=== PATIENT | female | born 1965 | race American Indian/Alaskan Native ===

== ENCOUNTER 2019-09-23 11:27 | Emergency (ER) | payer OTHER ==
--- NOTE | 2019-09-23 11:42 | Emergency Department Report ---
ED Allergic Reaction HPI - General Stated complaint: ALLERGIC REACTION Time Seen by Provider: 09/23/19 11:40 - History of Present Illness Initial Comments: 53 YO COMES TO ER AFTER ACCIDENTLY EATING A BANANA. SHE IS ALLERGIC TO BANANAS. SHE HAD MICAELA AND SOB. TOOK HER EPI PEN. HER WORK [employer] LOWERED HER TO THE GROUND AND CALLED 911. SHE ALSO TOOK BENADRYL. Complaint: allergic reaction -: hour(s) Exposure: food Symptoms: difficulty breathing Severity: severe Treatment Prior to Arrival: benadryl, epinephrine Previous Allergy History: anaphylaxis - Related Data Previous Rx's Medication Instructions Recorded Last Taken Type EPINEPHrine 0.3 mg IM ONCE PRN #1 each 09/23/19 Unknown Rx predniSONE [Deltasone] 20 mg PO DAILY #5 tablet 09/23/19 Unknown Rx Allergies Allergy/AdvReac Type Severity Reaction Status Date / Time banana Allergy Hives Verified 09/23/19 12:01 coconut Allergy Shortness Verified 09/23/19 12:01 of Breath ED Review of Systems ROS: Stated complaint: ALLERGIC REACTION Other details as noted in HPI Comment: All other systems reviewed and negative ED Past Medical Hx - Past Medical History Previous Medical History?: Yes Additional medical history: HYPOACTIVE THYROID, CHRONIC PAIN - Surgical History Past Surgical History?: Yes Additional Surgical History: HYSTERCTOMY - Medications Home Medications: Home Medications Medication Instructions Recorded Confirmed Last Taken Type EPINEPHrine 0.3 mg IM ONCE PRN #1 each 09/23/19 Unknown Rx predniSONE [Deltasone] 20 mg PO DAILY #5 tablet 09/23/19 Unknown Rx ED Physical Exam - General General appearance: alert, in no apparent distress - Head Head exam: Present: atraumatic, normocephalic - Eye Eye exam: Present: normal appearance - ENT ENT exam: Present: mucous membranes moist - Neck Neck exam: Present: normal inspection - Respiratory Respiratory exam: Present: normal lung sounds bilaterally. Absent: respiratory distress - Cardiovascular Cardiovascular Exam: Present: regular rate, normal rhythm. Absent: systolic murmur, diastolic murmur, rubs, gallop - GI/Abdominal GI/Abdominal exam: Present: soft, normal bowel sounds - Extremities Exam Extremities exam: Present: normal inspection - Back Exam Back exam: Present: normal inspection - Neurological Exam Neurological exam: Present: alert, oriented X3 - Psychiatric Psychiatric exam: Present: normal affect, normal mood - Skin Skin exam: Present: warm, dry, intact, normal color. Absent: rash ED Course Vital Signs 09/23/19 09/23/19 11:46 14:48 Temperature 97.4 F L Pulse Rate 70 88 Respiratory 18 Rate Blood Pressure 133/70 Blood Pressure 135/88 [Left] - Reevaluation(s) Reevaluation #1: 09/23/19 12:49 HOME RX FLAX SEED SYNTHROID ALLERGY MEDS PRN JEANNE FOR PAIN Reevaluation #2: 1500 no change vss nad no wheezing ED Medical Decision Making - Lab Data Result diagrams: 09/23/19 11:49 09/23/19 11:49 - Medical Decision Making MONITORED IN ER GIVEN USE OF EPI PEN PRIOR TO ARRIVAL Vital Signs 09/23/19 11:46 Temperature 97.4 F L Pulse Rate 70 Blood Pressure 133/70 Labs 09/23/19 09/23/19 11:49 11:49 WBC 5.2 RBC 5.04 H Hgb 14.1 Hct 42.4 MCV 84 MCH 28 MCHC 33 RDW 13.8 Plt Count 266 Sodium 141 Potassium 3.8 Chloride 104.9 Carbon Dioxide 20 L Anion Gap 20 BUN 12 Creatinine 0.7 Estimated GFR > 60 BUN/Creatinine Ratio 17 Glucose 85 Calcium 9.1 monitored in ER several hours dc home with ; both verbalize understanding dc plan of care - Differential Diagnosis ALLERGIC REACTION Critical care attestation.: If time is entered above; I have spent that time in minutes in the direct care of this critically ill patient, excluding procedure time. ED Disposition Clinical Impression: Allergic reaction, Anaphylactic reaction Disposition: DC-01 TO HOME OR SELFCARE Is pt being admited?: No Does the pt Need Aspirin: No Condition: Stable Instructions: Anaphylaxis (ED), Allergies (ED) Additional Instructions: MEDS ORDERED TODAY BENADRYL AND PEPCID, OVER THE COUNTER WILL HELP SUPPRESS ALLERGIC REACTIONS EPI PEN INSTRUCTED AVOID ALLERGEN FOLLOW UP WITH PCP Prescriptions: predniSONE [Deltasone] 20 mg PO DAILY #5 tablet EPINEPHrine 0.3 mg IM ONCE PRN #1 each PRN Reason: Allergic Reaction Referrals: [facility] [Outside] - 3-5 Days Time of Disposition: 12:42
[2019-09-23 12:07] LABS: Hematocrit 42.4 % (30.3-42.9); Hemoglobin 14.1 gm/dl (10.1-14.3); Mean Corpuscular HGB Conc 33 % (30-34); Mean Corpuscular Volume 84 fl (79-97); Platelet Count 266 K/mm3 (140-440); Red Blood Count 5.04 M/mm3 (3.65-5.03); Red Cell Distribution Width 13.8 % (13.2-15.2)
[2019-09-23 12:28] LABS: BUN/Creatinine Ratio 17; Blood Urea Nitrogen 12 mg/dL (7-17); Calcium 9.1 mg/dL (8.4-10.2); Hemolysis Index 10
[2019-09-23] MEDS ORDERED: FAMOTIDINE 20 MG TAB PO ONE (12:30)
[2019-09-23 14:50] VITALS: BP 135/88
== END 2019-09-23 15:31 | disposition home or self-care (01) ==
LOC: ED 11:27
DX: T78.2XXA Anaphylactic shock, unspecified, initial encounter (principal); Y92.89 Other specified places as the place of occurrence of the external cause
CPT/HCPCS: 36415; 80048; 82550; 85027